=== PATIENT | female | born 1945 ===

== ENCOUNTER 2017-11-30 09:18 | Emergency (ER) | payer MEDICARE ==
[2017-11-30 09:18] VITALS: BMI 24.9
[2017-11-30 09:29] VITALS: RESP 18; TEMP 98; O2SAT 100
[2017-11-30] MEDS ORDERED: Lidocaine 5% Patch TD STA (10:26)
--- NOTE | 2017-11-30 10:26 | C.PDOC ---
History Of Present Illness 72 year old female presents to the ER with a complaint of right mid back pain for the past 3 days with occasional radiation to the right side of the abdomen. Patient reports the pain is worse when laying flat, with movement, and was exacerbated this morning when she bent over to tow picker an object. Patient has not tried any pain medications at home; denies trauma or other associated symptoms. R MID BACK PAIN X 3 DAYS. OCC RADIATION SIDE R ABD. WORSE WHEN LAYING FLAT. EXAC THIS MORNING WHEN BENT OVER TO PERCUSSION INSTRUMENT TUNER OBJECT. WORSE W MOVEMENT. NO PAIN MEDS TRIED. DENIES TRAUMA, OTHER ASSOC SX EXAM MILD DIST NONTOXIC BACK +R MID BACK AND SIDE SPASM W TEND, REPRODUC PAIN. PAIN W ROM. SKIN NEG REMAINDER NEG Time Seen by Provider: 11/30/17 10:14 Chief Complaint (Nursing): Back Pain History Per: Patient History/Exam Limitations: no limitations Current Symptoms Are (Timing): Still Present Quality Of Discomfort: Unable To Describe Previous Symptoms: None Associated Symptoms: None Exacerbating Factor(s): Movement, Other (Laying, when picked up object this morning) Recent travel outside of the [place]: No Past Medical History Reviewed: Historical Data, Nursing Documentation, Vital Signs Vital Signs: Last Vital Signs Temp 98 F 11/30/17 09:25 Pulse 81 11/30/17 09:25 Resp 18 11/30/17 09:25 BP 137/84 11/30/17 09:25 Pulse Ox 100 11/30/17 10:31 - Medical History PMH: Hypercholesterolemia - [facility] COLONOSCOPY (10/14/13) Family History: States: Unknown Family Hx - Social History Hx Alcohol Use: No Hx Substance Use: No - Immunization History Hx Tetanus Toxoid Vaccination: No Hx Influenza Vaccination: No Hx Pneumococcal Vaccination: No Review Of Systems Except As Marked, All Systems Reviewed And Found Negative. Musculoskeletal: Positive for: Back Pain Neurological: Negative for: Weakness, Numbness Physical Exam - Physical Exam Appears: Non-toxic, Other (Mild distress) Skin: Normal Color, Warm, Dry, No Rash Head: Atraumatic, Normacephalic Eye(s): bilateral: Normal Inspection Back: Other (Right mid and side spasm with tenderness and reproducible pain. Pain with ROM.) Extremity: Normal ROM (x4) Neurological/Psych: Oriented x3, Normal Speech, Normal Motor, Normal Sensation Gait: Steady ED Course And Treatment O2 Sat by Pulse Oximetry: 100 (Room air) Pulse Ox Interpretation: Normal Medical Decision Making Medical Decision Making: Plan: * Flexeril, * Motrin * Lidoderm Disposition Counseled Patient/Family Regarding: Studies Performed, Diagnosis, Need For Followup, Rx Given - Disposition Referrals: YOUR,PMD [Other] Disposition: HOME/ ROUTINE Condition: IMPROVED Additional Instructions: APPLY PATCH TO AFFECTED AREA. MAX 3 PATCHES AT A TIME. REMOVE PATCH 12 HOURS AFTER INITIAL APPLICATION. ALTERNATE 12 HOURS ON, 12 HOURS OFF. Prescriptions: Cyclobenzaprine [Flexeril] 5 mg PO TID #9 tab Ibuprofen [Motrin] 400 mg PO QID #30 tab Lidocaine 5% [Lidoderm] 1 ea TD PRN PRN #10 patch PRN Reason: Pain, Moderate (4-7) Instructions: Upper Back Pain Forms: [facility] (Serbian) - Clinical Impression Clinical Impression: Back pain - Scribe Statement The provider has reviewed the documentation as recorded by the Scribe Stiven Burrows All medical record entries made by the Scribe were at my direction and personally dictated by me. I have reviewed the chart and agree that the record accurately reflects my personal performance of the history, physical exam, medical decision making, and the department course for this patient. I have also personally directed, reviewed, and agree with the discharge instructions and disposition.
[2017-11-30] MEDS ORDERED: Lidocaine 5% Patch TD ONE (10:35)
[2017-11-30 11:11] VITALS: BP 137/82; PULSE 64
== END 2017-11-30 11:10 | disposition home or self-care (01) ==
LOC: C.ER 09:18
DX: M54.9 Dorsalgia, unspecified (principal)

== ENCOUNTER 2018-10-11 10:46 | Outpatient (CLI) | payer MEDICARE | END 2018-10-11 10:47 | disposition home or self-care (01) | LOC: C.LAB 10:46 | DX: I12.9 Hypertensive chronic kidney disease with stage 1 through stage 4 chronic kidney disease, or unspecified chronic kidney disease (principal) ==

== ENCOUNTER 2018-12-28 14:04 | Outpatient (CLI) | payer MEDICARE | END 2018-12-28 14:05 | disposition home or self-care (01) | LOC: C.MAMMO 14:04 | DX: Z12.31 Encounter for screening mammogram for malignant neoplasm of breast (principal) ==